=== PATIENT | male | born 1960 | race Caucasian/White ===

== ENCOUNTER 2020-07-15 20:45 | Inpatient (IN) | payer SELFPAY ==
[2020-07-15 23:56] VITALS: BMI 27.8
[2020-07-15 23:57] LABS: Troponin I Greater than 45.000 ng/mL (< 0.028)
[2020-07-16] MEDS ORDERED: Heparin 25,000 units/D5W 500 ML IV SCH (01:15)
[2020-07-16] MEDS ORDERED: Heparin 10,000 UNITS/ 10 ML VIAL SLOW IVP SCH ×2 (01:15→09:30)
[2020-07-16 01:49] LABS: Critical Call Chem Troponin I RESULT DECREASING; Troponin I 41.651 ng/mL (< 0.028)
[2020-07-16] MEDS ORDERED: Nitroglycerin 0.4 MG TAB (25 Tab Bottle) SL PRN ×2 (02:07→13:33)
[2020-07-16] MEDS ORDERED: Ondansetron PF 4 MG/2 ML Vial IVP PRN (02:11)
[2020-07-16] MEDS ORDERED: Acetaminophen 325 MG TAB PO PRN (02:11)
[2020-07-16] MEDS ORDERED: Ondansetron ODT 4 MG TAB PO PRN (02:11)
[2020-07-16] MEDS ORDERED: Aspirin Chewable 81 MG TAB PO SCH (02:30)
[2020-07-16 04:52] LABS: SARS-CoV-2 PCR by NAA Not Detected (NotDetected)
[2020-07-16 05:12] LABS: Anion Gap 11 mmol/L (10-20); BUN (Urea Nitrogen) 11 mg/dL (8.4-25.7); Calc. Creatinine Clearance 135 mL/min (70-130); Calcium 8.9 mg/dL (7.8-10.44); Carbon Dioxide 25 mmol/L (23-31); Cardiac Risk 7.9 (Less than 4.5); Chloride 107 mmol/L (98-107); Cholesterol 182 mg/dl (< 200 Desired); Glucose 97 mg/dL (80-115); HDL Cholesterol 23 mg/dL (>60 Neg Risk); LDL Cholesterol, Calculated 135 mg/dL; Magnesium 1.8 mg/dL (1.6-2.6); Potassium 3.8 mmol/L (3.5-5.1); Sodium 139 mmol/L (136-145); Triglycerides 121 mg/dL (Less than 150)
[2020-07-16] MEDS ORDERED: FLU VACC QS2020-21(6MOS UP)/PF 60 MCG/0.5 ML SYRINGE IM ONE (09:00)
[2020-07-16] MEDS ORDERED: Metoprolol Tartrate 25 MG TAB PO SCH (09:00)
[2020-07-16] MEDS: Aspirin Chewable 81 MG TAB PO SCH (09:08)
[2020-07-16] MEDS ORDERED: Heparin 25,000 units/D5W 500 ML IVPB SCH (09:30)
[2020-07-16] MEDS ORDERED: Iopamidol 370 76% 100 ML VIAL ONE (09:34)
[2020-07-16 10:26] LABS: Hemoglobin 13.8 g/dL (14.0-18.0); Platelet Count 272 thou/uL (130-400)
[2020-07-16] MEDS ORDERED: Midazolam HCl 2 mg/2 ml Vial ONE (10:28)
[2020-07-16] MEDS ORDERED: Verapamil 5 MG/2 ML VIAL ONE (10:29)
[2020-07-16] MEDS ORDERED: Heparin 10,000 UNITS/ 10 ML VIAL ONE (10:29)
[2020-07-16] MEDS ORDERED: Adenosine 6 MG/2 ML VIAL ONE (10:29)
[2020-07-16] MEDS ORDERED: Fentanyl 100 MCG/2 ML VIAL ONE (10:29)
[2020-07-16] MEDS ORDERED: Nitroglycerin 100MG/250ML BOT 0 ML ONE (10:30)
[2020-07-16] MEDS ORDERED: Communication Order-Pharmacy FS SCH (10:30)
[2020-07-16] MEDS ORDERED: Nitroglycerin 100MG/250ML BOT 250 ML ONE (10:33)
[2020-07-16] MEDS ORDERED: Acetaminophen/Codeine 30-300mg Tablet PO PRN ×2 (13:33)
[2020-07-16] MEDS ORDERED: Sodium Chloride 0.9% 200 ML IV PRN (13:33)
[2020-07-16] MEDS ORDERED: Magnesium 2 GM/50 ML 2 GM in Premix Bag 1 BAG IVPB SCH (14:45)
[2020-07-16] MEDS: Heparin 25,000 units/D5W 500 ML IV SCH (19:19)
[2020-07-16] MEDS: Atorvastatin Calcium 40 MG TAB PO SCH (21:03)
[2020-07-16] MEDS: Carvedilol 3.125 MG TAB PO SCH (21:04)
[2020-07-17] MEDS: Heparin 10,000 UNITS/ 10 ML VIAL SLOW IVP SCH ×2 (01:05→14:04)
[2020-07-17 04:44] LABS: #Basophils 0.1 thou/uL (0.0-0.2); #Eosinphils 1.1 thou/uL (0.0-0.7); #Lymphocytes 2.6 thou/uL (1.20-3.40); #Monocytes 1.3 thou/uL (0.11-0.59); #Neutrophils 8.7 thou/uL (1.40-6.50); %Basophils 0.5 % (0.0-1.0); %Eosinophils 7.9 % (0.0-10.0); %Lymphocytes 19.2 % (21.0-51.0); %Monocytes 9.2 % (0.0-10.0); %Neutrophils 63.3 % (42.0-75.0); Hemoglobin 13.9 g/dL (14.0-18.0); Mean Corpuscular HGB CONC 32.7 g/dL (32.0-36.0); Mean Corpuscular Hemoglobin 32.9 pg (27.0-31.0); Mean Platelet Volume 7.6 fL (7.4-10.4); Platelet Count 264 thou/uL (130-400); RBC Distribution Width 11.8 % (11.5-14.5); Red Blood Cell (RBC) Count 4.22 mill/uL (4.70-6.10); White Blood Cell (WBC) Count 13.7 thou/uL (4.8-10.8)
[2020-07-17 05:06] LABS: Anion Gap 13 mmol/L (10-20); BUN (Urea Nitrogen) 12 mg/dL (8.4-25.7); CK (CPK) 269 U/L (30-200); Calc. Creatinine Clearance 126 mL/min (70-130); Calcium 8.8 mg/dL (7.8-10.44); Carbon Dioxide 24 mmol/L (23-31); Chloride 105 mmol/L (98-107); Glucose 89 mg/dL (80-115); Magnesium 1.9 mg/dL (1.6-2.6); Potassium 4.1 mmol/L (3.5-5.1); Sodium 138 mmol/L (136-145)
[2020-07-17 05:16] LABS: Critical Call Chem Troponin I RESULT DECREASING; Troponin I 11.459 ng/mL (< 0.028)
[2020-07-17] MEDS: Carvedilol 3.125 MG TAB PO SCH ×3 (09:49→16:24)
[2020-07-17] MEDS: Aspirin Chewable 81 MG TAB PO SCH (09:50)
[2020-07-17] MEDS: Polyethylene Glycol 3350 17 GM Packet PO SCH (09:50)
[2020-07-17] MEDS ORDERED: Carvedilol 3.125 MG TAB PO SCH (10:15)
[2020-07-17] MEDS: Heparin 25,000 units/D5W 500 ML IV SCH (12:53)
[2020-07-17] MEDS: Senokot S 8.6-50 MG TAB PO SCH (21:52)
[2020-07-17] MEDS: Cyanocobalamin (Vitamin B-12) 1,000 MCG TAB PO SCH (21:52)
[2020-07-17] MEDS: Multivit, Therapeutic 1 TAB PO SCH (21:52)
[2020-07-17] MEDS: Folic Acid 1 MG TAB PO SCH (21:52)
[2020-07-17] MEDS: Atorvastatin Calcium 40 MG TAB PO SCH (21:52)
[2020-07-18 01:48] LABS: #Basophils 0.1 thou/uL (0.0-0.2); #Eosinphils 0.8 thou/uL (0.0-0.7); #Lymphocytes 2.3 thou/uL (1.20-3.40); #Monocytes 0.7 thou/uL (0.11-0.59); #Neutrophils 4.8 thou/uL (1.40-6.50); %Basophils 0.9 % (0.0-1.0); %Eosinophils 9.3 % (0.0-10.0); %Lymphocytes 26.6 % (21.0-51.0); %Monocytes 8.4 % (0.0-10.0); %Neutrophils 54.9 % (42.0-75.0); Hemoglobin 14.5 g/dL (14.0-18.0); Mean Corpuscular Hemoglobin 34.3 pg (27.0-31.0); Platelet Count 235 thou/uL (130-400); RBC Distribution Width 11.7 % (11.5-14.5); Red Blood Cell (RBC) Count 4.22 mill/uL (4.70-6.10); White Blood Cell (WBC) Count 8.7 thou/uL (4.8-10.8)
[2020-07-18 03:23] LABS: Anion Gap 12 mmol/L (10-20); BUN (Urea Nitrogen) 11 mg/dL (8.4-25.7); Calc. Creatinine Clearance 123 mL/min (70-130); Calcium 9.1 mg/dL (7.8-10.44); Carbon Dioxide 26 mmol/L (23-31); Chloride 105 mmol/L (98-107); Glucose 90 mg/dL (80-115); Magnesium 1.9 mg/dL (1.6-2.6); Potassium 3.9 mmol/L (3.5-5.1); Sodium 139 mmol/L (136-145)
[2020-07-18] MEDS: Heparin 25,000 units/D5W 500 ML IV SCH (03:51)
[2020-07-18] MEDS ORDERED: PROPOFOL 20 ML ONE (08:27)
[2020-07-18] MEDS ORDERED: PROPOFOL 200 MG/20 ML VIAL ONE (08:41)
[2020-07-18] MEDS ORDERED: Promethazine HCl 25 MG/ML VIAL IM/IV PRN (11:00)
[2020-07-18] MEDS ORDERED: Ondansetron HCl/PF 4 MG/2 ML Vial IVP PRN (11:00)
[2020-07-18 11:27] LABS: Hemoglobin 14.4 g/dL (14.0-18.0); Platelet Count 261 thou/uL (130-400)
[2020-07-18] MEDS: Senokot S 8.6-50 MG TAB PO SCH ×2 (12:31→21:30)
[2020-07-18] MEDS: Polyethylene Glycol 3350 17 GM Packet PO SCH (12:31)
[2020-07-18] MEDS: Aspirin Chewable 81 MG TAB PO SCH (12:31)
[2020-07-18] MEDS: Famotidine 20 MG TAB PO SCH ×2 (12:33→21:29)
[2020-07-18] MEDS: Carvedilol 3.125 MG TAB PO SCH ×2 (12:38→18:15)
[2020-07-18] MEDS ORDERED: Apixaban 5 MG TAB PO SCH (21:00)
[2020-07-18] MEDS: Enoxaparin Sodium 100 MG/ML SYRINGE SC SCH (21:29)
[2020-07-18] MEDS: Folic Acid 1 MG TAB PO SCH (21:29)
[2020-07-18] MEDS: Cyanocobalamin (Vitamin B-12) 1,000 MCG TAB PO SCH (21:29)
[2020-07-18] MEDS: Multivit, Therapeutic 1 TAB PO SCH (21:29)
[2020-07-18] MEDS: Atorvastatin Calcium 40 MG TAB PO SCH (21:29)
[2020-07-19 05:31] LABS: #Basophils 0.1 thou/uL (0.0-0.2); #Eosinphils 0.9 thou/uL (0.0-0.7); #Lymphocytes 2.1 thou/uL (1.20-3.40); #Monocytes 0.9 thou/uL (0.11-0.59); #Neutrophils 6.7 thou/uL (1.40-6.50); %Basophils 0.6 % (0.0-1.0); %Eosinophils 8.5 % (0.0-10.0); %Lymphocytes 19.7 % (21.0-51.0); %Monocytes 8.6 % (0.0-10.0); %Neutrophils 62.6 % (42.0-75.0); Hemoglobin 14.7 g/dL (14.0-18.0); Mean Corpuscular HGB CONC 32.4 g/dL (32.0-36.0); Mean Corpuscular Hemoglobin 32.7 pg (27.0-31.0); Mean Platelet Volume 7.4 fL (7.4-10.4); Platelet Count 251 thou/uL (130-400); RBC Distribution Width 11.7 % (11.5-14.5); White Blood Cell (WBC) Count 10.7 thou/uL (4.8-10.8)
[2020-07-19 05:55] LABS: Anion Gap 15 mmol/L (10-20); BUN (Urea Nitrogen) 13 mg/dL (8.4-25.7); Calc. Creatinine Clearance 113 mL/min (70-130); Calcium 9.2 mg/dL (7.8-10.44); Carbon Dioxide 21 mmol/L (23-31); Chloride 105 mmol/L (98-107); Glucose 83 mg/dL (80-115); Magnesium 1.7 mg/dL (1.6-2.6); Potassium 3.9 mmol/L (3.5-5.1); Sodium 137 mmol/L (136-145)
[2020-07-19] MEDS ORDERED: Potassium Chloride 20 MEQ TAB PO SCH (08:30)
[2020-07-19] MEDS ORDERED: Magnesium Sulfate 4 GM in Sodium Chloride 0.9% 250 ML 250 ML IVPB SCH (08:30)
[2020-07-19] MEDS: Enoxaparin Sodium 100 MG/ML SYRINGE SC SCH ×2 (09:40→20:39)
[2020-07-19] MEDS: Carvedilol 3.125 MG TAB PO SCH ×2 (09:41→17:00)
[2020-07-19] MEDS: Polyethylene Glycol 3350 17 GM Packet PO SCH (09:41)
[2020-07-19] MEDS: Senokot S 8.6-50 MG TAB PO SCH ×2 (09:41→20:38)
[2020-07-19] MEDS: Famotidine 20 MG TAB PO SCH ×2 (09:42→20:38)
[2020-07-19] MEDS: Aspirin Chewable 81 MG TAB PO SCH (09:42)
[2020-07-19 20:28] VITALS: BP 102/78; TEMP 97.9
[2020-07-19] MEDS: Multivit, Therapeutic 1 TAB PO SCH (20:38)
[2020-07-19] MEDS: Folic Acid 1 MG TAB PO SCH (20:38)
[2020-07-19] MEDS: Atorvastatin Calcium 40 MG TAB PO SCH (20:39)
[2020-07-19] MEDS: Cyanocobalamin (Vitamin B-12) 1,000 MCG TAB PO SCH (20:39)
== END 2020-07-19 22:16 | disposition short-term general hospital (02) | DRG 281 ==
LOC: ERS 20:45 → 2NO 22:35
PROVIDERS: ADMIT Student in an Organized Health Care Education/Training Program; ATTEND Internal Medicine
PROC: 4A023N7 Measurement of Cardiac Sampling and Pressure, Left Heart, Percutaneous Approach (ICD-10-PCS; 2020-07-15)
PROC: B2151ZZ Fluoroscopy of Left Heart using Low Osmolar Contrast (ICD-10-PCS; 2020-07-15)
PROC: B2111ZZ Fluoroscopy of Multiple Coronary Arteries using Low Osmolar Contrast (ICD-10-PCS; 2020-07-15)
PROC: B2181ZZ Fluoroscopy of Left Internal Mammary Bypass Graft using Low Osmolar Contrast (ICD-10-PCS; 2020-07-15)
PROC: B24BZZ4 Ultrasonography of Heart with Aorta, Transesophageal (ICD-10-PCS; principal; 2020-07-18)
PROC: 5A2204Z Restoration of Cardiac Rhythm, Single (ICD-10-PCS; 2020-07-18)
DX: I21.4 Non-ST elevation (NSTEMI) myocardial infarction (principal); I50.22 Chronic systolic (congestive) heart failure; M62.82 Rhabdomyolysis; I48.0 Paroxysmal atrial fibrillation; J44.9 Chronic obstructive pulmonary disease, unspecified; F17.210 Nicotine dependence, cigarettes, uncomplicated; E83.42 Hypomagnesemia; I25.10 Atherosclerotic heart disease of native coronary artery without angina pectoris; E78.5 Hyperlipidemia, unspecified; D53.9 Nutritional anemia, unspecified; I08.3 Combined rheumatic disorders of mitral, aortic and tricuspid valves
CPT/HCPCS: 36415; 76942; 80048; 80061; 82550; 83735; 84443; 84484; 85014; 85018; 85025; 85049; 85347; 85730; 87635; 92960; 93005; 93306; 93312; 93458; 93798; 94760; 99152; 99153; G0278; J0153; J1644; J1650; J2250; J2704; J3010; J3475; J7050; J7620; Q9967; U0003; U0005

== ENCOUNTER 2020-12-26 16:04 | Outpatient (CLI) | payer SELFPAY ==
[2020-12-26 16:58] LABS: PTT 28.3 sec (22.0-33.0); Prothrombin Time 11.3 sec (9.5-12.1)
[2020-12-27 13:11] LABS: SARS-CoV-2 PCR by NAA Not Detected (NotDetected)
== END 2020-12-26 16:05 | disposition home or self-care (01) ==
LOC: LABBT 16:04
PROVIDERS: ATTEND Internal Medicine Cardiovascular Disease
DX: Z01.812 Encounter for preprocedural laboratory examination (principal); I48.91 Unspecified atrial fibrillation; Z20.822 Contact with and (suspected) exposure to COVID-19
CPT/HCPCS: 85610; 85730; U0003; U0005

== ENCOUNTER 2020-12-31 06:55 | Day surgery (SDC) | payer OTHER ==
[2020-12-27 14:28] VITALS: BMI 28.5
[2020-12-31] MEDS ORDERED: PROPOFOL 20 ML ONE (10:07)
== END 2020-12-31 11:46 | disposition home or self-care (01) ==
LOC: CCL 06:55
PROVIDERS: ATTEND Internal Medicine Cardiovascular Disease
PROC: 5A2204Z Restoration of Cardiac Rhythm, Single (ICD-10-PCS; principal; 2020-12-31)
PROC: B24BZZ4 Ultrasonography of Heart with Aorta, Transesophageal (ICD-10-PCS; principal; 2020-12-31)
DX: I48.0 Paroxysmal atrial fibrillation (principal); I08.3 Combined rheumatic disorders of mitral, aortic and tricuspid valves; I70.0 Atherosclerosis of aorta; I25.10 Atherosclerotic heart disease of native coronary artery without angina pectoris; J44.9 Chronic obstructive pulmonary disease, unspecified; I25.5 Ischemic cardiomyopathy; E78.5 Hyperlipidemia, unspecified; Z87.891 Personal history of nicotine dependence; Z79.01 Long term (current) use of anticoagulants; Z79.02 Long term (current) use of antithrombotics/antiplatelets; Z79.899 Other long term (current) drug therapy; Z95.5 Presence of coronary angioplasty implant and graft
CPT/HCPCS: 92960; 93005; 93010; 93312; J2704

== ENCOUNTER 2021-12-12 21:01 | Observation (INO) | payer OTHER, SELFPAY ==
[2021-12-12] MEDS ORDERED: Aspirin Chewable 81 MG TAB ONE (21:51)
[2021-12-12 22:34] LABS: #Eosinphils 0.9 thou/uL (0.0-0.7); #Lymphocytes 1.6 thou/uL (1.20-3.40); #Monocytes 1.2 thou/uL (0.11-0.59); #Neutrophils 10.8 thou/uL (1.40-6.50); %Basophils 0.2 % (0.0-1.0); %Eosinophils 6.4 % (0.0-10.0); %Lymphocytes 10.7 % (21.0-51.0); %Monocytes 8.4 % (0.0-10.0); %Neutrophils 74.3 % (42.0-75.0); Hemoglobin 13.6 g/dL (14.0-18.0); Mean Corpuscular HGB CONC 33.8 g/dL (32.0-36.0); Mean Corpuscular Hemoglobin 34.6 pg (27.0-31.0); Mean Platelet Volume 7.3 fL (7.4-10.4); Platelet Count 256 thou/uL (130-400); RBC Distribution Width 11.9 % (11.5-14.5); Red Blood Cell (RBC) Count 3.94 mill/uL (4.70-6.10); White Blood Cell (WBC) Count 14.6 thou/uL (4.8-10.8)
[2021-12-12 22:42] LABS: Anion Gap 15 mmol/L (10-20); BUN (Urea Nitrogen) 15 mg/dL (8.4-25.7); Calc. Creatinine Clearance 0 mL/min (70-130); Carbon Dioxide 22 mmol/L (23-31); Chloride 105 mmol/L (98-107); Estimated GFR 73; Glucose 124 mg/dL (80-115); Potassium 4.3 mmol/L (3.5-5.1); Sodium 138 mmol/L (136-145)
[2021-12-13] MEDS ORDERED: Morphine 2 MG/ML VIAL ONE (01:15)
[2021-12-13 01:17] LABS: SARS-CoV-2 NAA Rapid Test Not Detected (NotDetected)
[2021-12-13] MEDS ORDERED: hydrALAZINE 20 MG/ML VIAL SLOW IVP PRN (01:31)
[2021-12-13] MEDS ORDERED: Morphine 2 MG/ML VIAL SLOW IVP PRN (01:31)
[2021-12-13] MEDS ORDERED: HYDROcodone/Acetaminophen 5/325 mg Tablet PO PRN (01:32)
[2021-12-13] MEDS ORDERED: Zolpidem Tartrate 5 MG TAB PO PRN (01:32)
[2021-12-13] MEDS ORDERED: Acetaminophen 325 MG TAB PO PRN (01:32)
[2021-12-13 02:10] VITALS: BMI 28.6
[2021-12-13 02:48] LABS: Troponin I Less than 0.010 ng/mL (< 0.028)
[2021-12-13 04:47] LABS: #Lymphocytes 3.3 thou/uL (1.20-3.40); #Monocytes 1.2 thou/uL (0.11-0.59); #Neutrophils 8.3 thou/uL (1.40-6.50); %Basophils 0.2 % (0.0-1.0); %Eosinophils 7.5 % (0.0-10.0); %Lymphocytes 24.1 % (21.0-51.0); %Monocytes 8.6 % (0.0-10.0); %Neutrophils 59.6 % (42.0-75.0); Hemoglobin 13.7 g/dL (14.0-18.0); Mean Corpuscular HGB CONC 34.4 g/dL (32.0-36.0); Mean Corpuscular Hemoglobin 35.3 pg (27.0-31.0); Platelet Count 256 thou/uL (130-400); RBC Distribution Width 11.7 % (11.5-14.5); Red Blood Cell (RBC) Count 3.89 mill/uL (4.70-6.10); White Blood Cell (WBC) Count 13.9 thou/uL (4.8-10.8)
[2021-12-13 05:05] LABS: Anion Gap 14 mmol/L (10-20); BUN (Urea Nitrogen) 12 mg/dL (8.4-25.7); Calc. Creatinine Clearance 114 mL/min (70-130); Calcium 9.4 mg/dL (7.8-10.44); Carbon Dioxide 22 mmol/L (23-31); Chloride 108 mmol/L (98-107); Estimated GFR 96; Glucose 92 mg/dL (80-115); Potassium 4.2 mmol/L (3.5-5.1); Sodium 140 mmol/L (136-145)
[2021-12-13 05:11] LABS: Troponin I Less than 0.010 ng/mL (< 0.028)
[2021-12-13 08:37] VITALS: BP 129/73; TEMP 97.4
[2021-12-13] MEDS ORDERED: Spironolactone 25 MG TAB PO SCH (09:00)
[2021-12-13] MEDS ORDERED: Enoxaparin Sodium 30 MG/0.3 ML SYRINGE SC SCH (09:00)
[2021-12-13] MEDS ORDERED: Diclofenac 1% 100 GM GEL TP SCH (09:00)
[2021-12-13] MEDS ORDERED: Famotidine 20 MG TAB PO SCH (09:00)
[2021-12-13] MEDS ORDERED: Apixaban 5 MG TAB PO SCH (09:00)
[2021-12-13] MEDS ORDERED: Clopidogrel Bisulfate 75 MG TAB PO SCH (09:00)
[2021-12-13] MEDS ORDERED: Atorvastatin Calcium 40 MG TAB PO SCH (21:00)
== END 2021-12-13 11:25 | disposition home or self-care (01) ==
LOC: ERS 21:01 → 2SW 23:55
PROVIDERS: ADMIT Internal Medicine; ATTEND Internal Medicine
DX: M11.012 Hydroxyapatite deposition disease, left shoulder (principal); I10 Essential (primary) hypertension; J44.9 Chronic obstructive pulmonary disease, unspecified; I48.91 Unspecified atrial fibrillation; I25.10 Atherosclerotic heart disease of native coronary artery without angina pectoris; I25.2 Old myocardial infarction; F17.210 Nicotine dependence, cigarettes, uncomplicated; M19.012 Primary osteoarthritis, left shoulder; Z79.01 Long term (current) use of anticoagulants; Z79.02 Long term (current) use of antithrombotics/antiplatelets; Z79.82 Long term (current) use of aspirin; Z79.899 Other long term (current) drug therapy; Z95.5 Presence of coronary angioplasty implant and graft; Z20.822 Contact with and (suspected) exposure to COVID-19
CPT/HCPCS: 36415; 71045; 80048; 83880; 84484; 85025; 93005; 96374; G0378; J2270; U0002

== ENCOUNTER 2022-02-02 19:09 | Inpatient (IN) | payer OTHER, SELFPAY ==
[~2022-02-02 19:09] MED LIST: Iopamidol-370 76% 500 ML 1 ML ONE
[2022-02-02] MEDS ORDERED: Ondansetron PF 4 MG/2 ML Vial ONE (21:25)
[2022-02-02] MEDS ORDERED: Morphine 4 MG/ML VIAL ONE (21:25)
[2022-02-02] MEDS ORDERED: Fentanyl 100 MCG/2 ML VIAL ONE (22:03)
[2022-02-02] MEDS ORDERED: Clindamycin/D5W 900 mg/50 ml Premix Bag ONE (23:28)
[2022-02-02] MEDS ORDERED: metroNIDAZOLE 500 MG/100 ML BAG ONE (23:31)
[2022-02-02] MEDS ORDERED: metroNIDAZOLE 500 MG in Premix Bag 1 BAG IVPB SCH (23:45)
[2022-02-02 23:47] LABS: #Eosinphils 0.2 thou/uL (0.0-0.7); #Lymphocytes 2.4 thou/uL (1.20-3.40); #Monocytes 1.7 thou/uL (0.11-0.59); #Neutrophils 12.6 thou/uL (1.40-6.50); %Basophils 0.1 % (0.0-1.0); %Eosinophils 1.5 % (0.0-10.0); %Monocytes 10.1 % (0.0-10.0); %Neutrophils 74.3 % (42.0-75.0); Hemoglobin 14.2 g/dL (14.0-18.0); Mean Corpuscular HGB CONC 33.6 g/dL (32.0-36.0); Mean Corpuscular Hemoglobin 34.8 pg (27.0-31.0); Mean Platelet Volume 7.6 fL (7.4-10.4); Platelet Count 260 thou/uL (130-400); RBC Distribution Width 11.5 % (11.5-14.5); Red Blood Cell (RBC) Count 4.07 mill/uL (4.70-6.10)
[2022-02-02 23:50] LABS: Bacteria/HPF None Seen HPF (None Seen); Bilirubin Negative (Negative); Blood, Urine 1+ (Negative); Clarity Clear (Clear); Glucose, Urine (Dipstick) Normal (Negative); Ketone, Urine Negative (Negative); Leukocyte Negative Leu/uL (Negative); Mucous/LPF 2+ LPF (<2+); Nitrite Negative (Negative); Protein, Urine (Dipstick) 30 mg/dL (Neg-Trace); RBC/HPF 0-3 HPF (0-3); Squamous Epithelial 0-3 HPF (0-3); WBC/HPF 0-3 HPF (0-3); pH, Urine 5.5 (5.0-9.0)
[2022-02-03] LABS: ALT (SGPT) 41 U/L (8-55); AST (SGOT) 23 U/L (5-34); Albumin 3.9 g/dL (3.4-4.8); Alkaline Phosphatase 90 U/L (40-110); Anion Gap 15 mmol/L (10-20); BUN (Urea Nitrogen) 14 mg/dL (8.4-25.7); Calc. Creatinine Clearance 0 mL/min (70-130); Calcium 9.4 mg/dL (7.8-10.44); Carbon Dioxide 22 mmol/L (23-31); Chloride 103 mmol/L (98-107); Estimated GFR 95; Globulin 3.7 g/dL (2.4-3.5); Glucose 88 mg/dL (80-115); Protein, Total 7.6 g/dL (5.8-8.1); Sodium 136 mmol/L (136-145)
[2022-02-03 01:40] LABS: SARS-CoV-2 NAA Rapid Test Not Detected (NotDetected)
[2022-02-03] MEDS ORDERED: Acetaminophen 325 MG TAB PO PRN (03:18)
[2022-02-03] MEDS ORDERED: Ondansetron PF 4 MG/2 ML Vial IVP PRN (03:18)
[2022-02-03] MEDS ORDERED: VANCOMYCIN 1.25 GM/250 ML BAG IVPB SCH (04:00)
[2022-02-03] MEDS ORDERED: Piperacillin/Tazobactam 3.375 GM in Sodium Chloride 0.9% 100 ML IVPB SCH ×3 (04:00→12:00)
[2022-02-03] MEDS ORDERED: HYDROcodone/Acetaminophen 5/325 mg Tablet PO PRN (04:02)
[2022-02-03] MEDS ORDERED: Nicotine 21 MG PATCH TD SCH (04:15)
[2022-02-03] MEDS ORDERED: Lactated Ringer's 1,000 ML IV SCH (04:30)
[2022-02-03] MEDS ORDERED: Morphine 4 MG/ML VIAL SLOW IVP PRN (04:34)
[2022-02-03 06:18] LABS: #Eosinphils 0.4 thou/uL (0.0-0.7); #Lymphocytes 1.6 thou/uL (1.20-3.40); #Monocytes 1.4 thou/uL (0.11-0.59); #Neutrophils 10.4 thou/uL (1.40-6.50); %Basophils 0.3 % (0.0-1.0); %Eosinophils 2.7 % (0.0-10.0); %Lymphocytes 11.4 % (21.0-51.0); %Monocytes 10.2 % (0.0-10.0); %Neutrophils 75.3 % (42.0-75.0); Hemoglobin 12.8 g/dL (14.0-18.0); Mean Corpuscular HGB CONC 32.1 g/dL (32.0-36.0); Mean Corpuscular Hemoglobin 33.2 pg (27.0-31.0); Mean Platelet Volume 7.1 fL (7.4-10.4); Platelet Count 245 thou/uL (130-400); RBC Distribution Width 11.3 % (11.5-14.5); Red Blood Cell (RBC) Count 3.85 mill/uL (4.70-6.10); White Blood Cell (WBC) Count 13.8 thou/uL (4.8-10.8)
[2022-02-03 06:37] LABS: ALT (SGPT) 49 U/L (8-55); AST (SGOT) 30 U/L (5-34); Albumin 3.3 g/dL (3.4-4.8); Alkaline Phosphatase 79 U/L (40-110); Anion Gap 11 mmol/L (10-20); BUN (Urea Nitrogen) 11 mg/dL (8.4-25.7); Bilirubin, Total 0.9 mg/dL (0.2-1.2); Calc. Creatinine Clearance 0 mL/min (70-130); Calcium 8.5 mg/dL (7.8-10.44); Carbon Dioxide 22 mmol/L (23-31); Chloride 107 mmol/L (98-107); Estimated GFR 99; Globulin 2.9 g/dL (2.4-3.5); Glucose 92 mg/dL (80-115); Protein, Total 6.2 g/dL (5.8-8.1); Sodium 136 mmol/L (136-145)
[2022-02-03 06:53] VITALS: BMI 28.0
[2022-02-03] MEDS ORDERED: Vancomycin HCl 2.5 GM in Sodium Chloride 0.9% 500 ML IVPB SCH (08:00)
[2022-02-03 08:18] VITALS: TEMP 98
[2022-02-03] MEDS ORDERED: Spironolactone 25 MG TAB PO SCH (09:00)
[2022-02-03] MEDS ORDERED: Clopidogrel Bisulfate 75 MG TAB PO SCH (09:00)
[2022-02-03] MEDS ORDERED: Ezetimibe 10 MG TAB PO SCH (09:00)
[2022-02-03] MEDS ORDERED: EPINEPHrine 1 MG/ML VIAL IJ SCH (09:45)
[2022-02-03] MEDS ORDERED: Lidocaine 1% (PF) 30 ML VIAL IJ SCH (09:45)
[2022-02-03 15:33] VITALS: BP 98/54
[2022-02-03] MEDS ORDERED: VANCOMYCIN 1.75 GM/500 ML BAG 1.75 GM in Premix Bag 1 BAG IVPB SCH (20:00)
[2022-02-03] MEDS ORDERED: Vancomycin 1.5 GRAM/300 ML BAG 1.5 GM in Premix Bag 1 BAG IVPB SCH (20:00)
[2022-02-03] MEDS ORDERED: Atorvastatin Calcium 40 MG TAB PO SCH (21:00)
[2022-02-03] MEDS ORDERED: Amoxicillin/Potassium Clav 500 MG TAB PO SCH (21:00)
[2022-02-04] MEDS ORDERED: Nicotine 21 MG PATCH TD SCH (09:00)
== END 2022-02-03 17:45 | disposition home or self-care (01) | DRG 395 ==
LOC: ERS 19:09 → 2NO 02-03 00:31
PROVIDERS: ADMIT Internal Medicine; ATTEND Internal Medicine
PROC: 0D9Q0ZX Drainage of Anus, Open Approach, Diagnostic (ICD-10-PCS; principal; 2022-02-03)
DX: K61.0 Anal abscess (principal); I48.91 Unspecified atrial fibrillation; Z79.01 Long term (current) use of anticoagulants; I25.10 Atherosclerotic heart disease of native coronary artery without angina pectoris; Z95.5 Presence of coronary angioplasty implant and graft; J44.9 Chronic obstructive pulmonary disease, unspecified; F17.210 Nicotine dependence, cigarettes, uncomplicated; Z20.822 Contact with and (suspected) exposure to COVID-19; Z28.311 Partially vaccinated for COVID-19; Z79.82 Long term (current) use of aspirin; Z79.899 Other long term (current) drug therapy
CPT/HCPCS: 36415; 72193; 80053; 81003; 81015; 83605; 85025; 87040; 94760; 96374; 96375; J0171; J2001; J2270; J2405; J3010; J3490; J7120; Q9967

== ENCOUNTER 2022-04-15 03:34 | Emergency (ER) | payer BC, SELFPAY ==
[2022-04-15 04:03] LABS: #Basophils 0.1 thou/uL (0.0-0.2); #Eosinphils 0.7 thou/uL (0.0-0.7); #Lymphocytes 2.4 thou/uL (1.20-3.40); #Monocytes 0.5 thou/uL (0.11-0.59); #Neutrophils 1.7 thou/uL (1.40-6.50); %Eosinophils 12.4 % (0.0-10.0); %Lymphocytes 45.2 % (21.0-51.0); %Monocytes 10.2 % (0.0-10.0); %Neutrophils 31.2 % (42.0-75.0); Hemoglobin 15.5 g/dL (14.0-18.0); Mean Corpuscular HGB CONC 33.8 g/dL (32.0-36.0); Mean Corpuscular Hemoglobin 34.5 pg (27.0-31.0); Mean Platelet Volume 7.8 fL (7.4-10.4); Platelet Count 147 10x3/uL (130-400); RBC Distribution Width 11.7 % (11.5-14.5); Red Blood Cell (RBC) Count 4.48 mill/uL (4.70-6.10); White Blood Cell (WBC) Count 5.4 10x3/uL (4.8-10.8)
[2022-04-15 04:25] LABS: ALT (SGPT) 48 U/L (8-55); AST (SGOT) 28 U/L (5-34); Albumin 3.9 g/dL (3.4-4.8); Alkaline Phosphatase 97 U/L (40-110); Anion Gap 13 mmol/L (10-20); BUN (Urea Nitrogen) 11 mg/dL (8.4-25.7); Bilirubin, Total 0.5 mg/dL (0.2-1.2); Calc. Creatinine Clearance 0 mL/min (70-130); Calcium 8.8 mg/dL (7.8-10.44); Carbon Dioxide 25 mmol/L (23-31); Chloride 106 mmol/L (98-107); Estimated GFR 93; Globulin 2.6 g/dL (2.4-3.5); Glucose 95 mg/dL (80-115); Potassium 4.8 mmol/L (3.5-5.1); Protein, Total 6.5 g/dL (5.8-8.1); Sodium 139 mmol/L (136-145)
[2022-04-15 05:52] LABS: SARS-CoV-2 NAA Rapid Test DETECTED (NotDetected)
[2022-04-15] MEDS ORDERED: Iopamidol-370 76% 500 ML 1 ML ONE (12:45)
== END 2022-04-15 06:08 | disposition home or self-care (01) ==
LOC: ERS 03:34
DX: U07.1 COVID-19 (principal); J44.1 Chronic obstructive pulmonary disease with (acute) exacerbation; I71.21 Aneurysm of the ascending aorta, without rupture; I71.43 Infrarenal abdominal aortic aneurysm, without rupture; F17.210 Nicotine dependence, cigarettes, uncomplicated; Z79.01 Long term (current) use of anticoagulants; Z79.899 Other long term (current) drug therapy; Z79.82 Long term (current) use of aspirin
CPT/HCPCS: 36415; 71045; 71275; 74174; 80053; 83880; 84484; 85025; 93005; 94640; J7620; Q9967

== ENCOUNTER 2022-06-26 07:28 | Outpatient (CLI) | payer BC | END 2022-06-26 07:29 | disposition home or self-care (01) | LOC: BICCT 07:28 | PROVIDERS: ATTEND Registered Nurse | DX: Z12.2 Encounter for screening for malignant neoplasm of respiratory organs (principal); F17.210 Nicotine dependence, cigarettes, uncomplicated; J98.4 Other disorders of lung | CPT/HCPCS: 71271 ==